=== PATIENT | female | born 1960 | race Two or more races ===

== ENCOUNTER 2020-12-04 11:15 | Inpatient (IN) | payer OTHER ==
[~2020-12-04] VITALS: Ht 154.9 cm; Wt 78.9 kg
[2020-12-04] MEDS ORDERED: TENORMIN25 MG PO (15:04)
[2020-12-04] MEDS ORDERED: PROMETH PO (15:05)
[2020-12-04] MEDS ORDERED: ANTIVERT PO (15:05)
[2020-12-11] MEDS ORDERED: DRAMAMINE LESS25 MG PO (15:59)
[2020-12-11] MEDS ORDERED: OMEPRAZOLE MAGN20 MG PO (16:00)
[2020-12-11] MEDS ORDERED: CLARITIN10 M1 (16:01)
[2020-12-11] MEDS ORDERED: PHENERGAN25 MG (16:01)
[2020-12-18] MEDS ORDERED: NEURONTIN600 M1 PO (07:15)
[2020-12-18] MEDS ORDERED: ULTRAM50 MG PO (07:15)
[2020-12-18] MEDS ORDERED: TYLENOL ARTHRI650 MG PO (07:15)
[2020-12-18] MEDS ORDERED: INTESTINEX680 M1 PO (07:15)
[2020-12-18] MEDS ORDERED: PEPCID AC20 MG PO (07:15)
[2020-12-19] MEDS ORDERED: LEVOFLOXACIN500 MG PO (07:39)
== END 2020-12-19 12:05 | disposition home or self-care (01) | DRG 336 ==
LOC: EDSTATUS 11:15 → ADM 11:15 → O/R 12-11 10:12 → SURH 12-11 11:15
PROVIDERS: ADMIT Surgery; ATTEND Surgery
PROC: 0WUF0JZ Supplement Abdominal Wall with Synthetic Substitute, Open Approach (ICD-10-PCS; 2020-12-11)
PROC: 0DNW0ZZ Release Peritoneum, Open Approach (ICD-10-PCS; principal; 2020-12-11 12:00)
DX: K42.0 Umbilical hernia with obstruction, without gangrene (principal); D69.3 Immune thrombocytopenic purpura; J98.11 Atelectasis; K56.7 Ileus, unspecified; K43.0 Incisional hernia with obstruction, without gangrene; K66.0 Peritoneal adhesions (postprocedural) (postinfection)

== ENCOUNTER 2020-12-26 10:22 | Inpatient (IN) | payer OTHER ==
[~2020-12-26] VITALS: Ht 154.9 cm; Wt 74.4 kg
[~2020-12-26 10:22] MED LIST: ANTIVERT PO; CLARITIN10 M1; DRAMAMINE LESS25 MG PO; INTESTINEX680 M1 PO; LEVOFLOXACIN500 MG PO; NEURONTIN600 M1 PO; OMEPRAZOLE MAGN20 MG PO; PEPCID AC20 MG PO; PHENERGAN25 MG; PROMETH PO; TENORMIN25 MG PO; TYLENOL ARTHRI650 MG PO; ULTRAM50 MG PO
--- NOTE | 2020-12-26 10:48 | NUR ---
SE RECIBE PACIENTE ALERTA Y ORIENTADA X3. ESTA REFIERE MATTEO TENIDO JUAN ALBERTO CIRUGIA EL Y HOY TENIA JUAN ALBERTO KYLE DE RUTINA CON EL DR. COSTA CROCKER QUIEN HIZO UN REFERIDO PARA ADMITIR LA PACIENTE YA QUE TIENE EL AREA ENROJECIDA. SE MONITOREAN LOS SV Y SE UBICA EN OBSERVACION.
--- NOTE | 2020-12-26 12:31 | NUR ---
SE ORIENTA A PACIENTE SOBRE TRATAMIENTO ORDENADO POR DR. PARDO, LA MISMA VERBALIZA ENTENDER. SE COLECTAN MUESTRAS ORDENADAS, SE ADMINISTRAN MEDICAMENTOS Y SE COLOCA VENOPUNCION PATENTE, KALEE DE ERITEMA Y EDEMA, Y SE CONECTA TERAPIA DE IVF'S. PENDIENTE RESULTADOS DE LABORATORIOS Y CONSULTA CON DR. COSTA CROCKER. SE MANTIENE EN OBSERVACION POR CAMBIOS.
[2021-01-08] MEDS ORDERED: LORATADINE10 MG PO (19:31)
[2021-01-08] MEDS ORDERED: XOPENEX0.63 MG/3 IH (19:32)
[2021-01-08] MEDS ORDERED: FLONASE16 GM NASAL (19:32)
[2021-01-09] MEDS ORDERED: PANTOPRAZOLE SO40 MG PO (07:26)
[2021-01-09] MEDS ORDERED: INTESTINEX680 M1 PO (07:26)
[2021-01-09] MEDS ORDERED: FAMOTIDINE20 MG PO (07:26)
[2021-01-09] MEDS ORDERED: ULTRAM50 MG PO (07:28)
== END 2021-01-09 14:38 | disposition home or self-care (01) | DRG 857 ==
LOC: ER 10:22 → SURH 14:19
PROVIDERS: ADMIT Surgery; ATTEND Surgery
PROC: 2W13X6Z Compression of Abdominal Wall using Pressure Dressing (ICD-10-PCS; 2020-12-26)
PROC: 0JB80ZZ Excision of Abdomen Subcutaneous Tissue and Fascia, Open Approach (ICD-10-PCS; principal; 2020-12-26 15:00)
PROC: 02HV33Z Insertion of Infusion Device into Superior Vena Cava, Percutaneous Approach (ICD-10-PCS; 2020-12-27)
PROC: 0JB80ZZ Excision of Abdomen Subcutaneous Tissue and Fascia, Open Approach (ICD-10-PCS; 2020-12-29)
DX: T81.41XA Infection following a procedure, superficial incisional surgical site, initial encounter (principal); D69.3 Immune thrombocytopenic purpura; J98.11 Atelectasis; I10 Essential (primary) hypertension; Z20.822 Contact with and (suspected) exposure to COVID-19; D69.6 Thrombocytopenia, unspecified